=== PATIENT | female | born 1945 | race Caucasian/White ===

== ENCOUNTER 2023-11-09 11:14 | Emergency (ER) | payer BC ==
[~2023-11-09] VITALS: Ht 142.2 cm; Wt 40.8 kg
[2023-11-09 11:15] VITALS: BP_SYST 141; PULSE 81; RESP 18; TEMP 97.9; O2SAT 97
== END 2023-11-09 13:52 | disposition home or self-care (01) ==
LOC: SED 11:14
DX: S63.591A Other specified sprain of right wrist, initial encounter (principal); S60.221A Contusion of right hand, initial encounter; Z88.5 Allergy status to narcotic agent; Z95.0 Presence of cardiac pacemaker; W01.0XXA Fall on same level from slipping, tripping and stumbling without subsequent striking against object, initial encounter; Y93.89 Activity, other specified; Y92.89 Other specified places as the place of occurrence of the external cause; Y99.8 Other external cause status
CPT/HCPCS: 99284